=== PATIENT | female | born 1990 | race Caucasian/White ===

== ENCOUNTER → 2016-02-26 | Day surgery (SDC) | payer OTHER, BC ==
[~2016-02-26] VITALS: Ht 162.6 cm; Wt 63.5 kg
[~2016-02-26] MED LIST: BUPIVACAINE HCL 0.25% 30 ML VIAL As Ordered ONE; BUPIVACAINE HCL 0.25% 30 ML VIAL XX ONE; GLYCOPYRROLATE INJ 0.2 MG/ML 2 ML VIAL As Ordered ONE; HYDROcodone/APAP LIQUID 7.5-325MG 15ML UDC (LORTAB ELIXIR) PO PRN; HYDROmorphone HCL 2 MG/ML 1ML VIAL (J1170) As Ordered ONE; KETOROLAC 30 MG/ML VIAL (J1885) IV SCH; KETOROLAC 60 MG/2 ML VIAL (J1885) As Ordered ONE; LIDOCAINE 2% INJ 100 MG/5 ML SDV (FOR ANES.) As Ordered ONE; LR 1,000 ML IV SCH; MIDAZOLAM INJ 2 MG/2 ML VIAL (J2250) As Ordered ONE; NEOSTIGMINE 1MG/ML 5 ML SYRINGE (J2710) As Ordered ONE; NO HOME MEDS; ONDANSETRON 4MG/2ML VIAL (J2405) As Ordered ONE; ONDANSETRON 4MG/2ML VIAL (J2405) IV PRN; PERCOCET 5MG/325MG TAB PO PRN; PHENYLephrine HCL 500 MCG/5 ML (100MCG/ML) SYRINGE (J2370) As Ordered ONE; PROPOFOL 200 MG/20 ML VIAL As Ordered ONE; ROCURONIUM BROMIDE 50 MG/5 ML VIAL As Ordered ONE; dexameTHASONE 4 MG/ML 1ML VIAL (J1100) As Ordered ONE; ePHEDrine SULFATE 25 MG/5 ML(5MG/ML) SYRINGE As Ordered ONE; fentaNYL 100 MCG/2 ML INJECTION (J3010) IV PRN; fentaNYL 250 MCG/5 ML INJECTION (J3010) As Ordered ONE
[2016-02-26 09:27] LABS: MEAN CORPUSCULAR HEMOGLOBIN 31.3 pg (27.0-33.0); MEAN CORPUSCULAR HGB CONC 35.8 g/dl (32.0-36.5); MEAN CORPUSCULAR VOLUME 87.5 fl (80.0-96.0); RED CELL DISTRIBUTION WIDTH 12.8 % (11.5-14.5); WHITE BLOOD COUNT 4.3 K/mm3 (4.0-10.0)
[2016-02-26 09:48] LABS: CONTROL LINE HCG INT CTR LINE PRESENT
--- NOTE | 2016-02-26 11:53 | RO ---
DATE OF PROCEDURE: 02/26/2016 PREPROCEDURE DIAGNOSIS: Left ovarian cyst. POSTPROCEDURE DIAGNOSIS: Left endometrioma. PROCEDURE: Laparoscopic left ovarian cystectomy. SURGEON: Georgiana Shipley M.D. STENOTYPE MACHINE OPERATOR: Griffin Wells M.D. Medical student: Malick Abad Lonnie III. ANESTHESIA: General endotracheal anesthesia. ESTIMATED BLOOD LOSS: 5 mL. IV FLUID: 1300 mL of lactated ringer solution. URINE OUTPUT: 300 mL. SPECIMEN: Left endometrioma. OPERATIVE FINDINGS: Patient with approximately 6 cm left endometrioma, normal appearing uterus and bilateral ovaries otherwise. DESCRIPTION OF OPERATION: After informed consent was obtained and written consent was reviewed, the patient was brought to the operating room where general endotracheal anesthesia was obtained. She was then placed in lithotomy position and was prepped and draped in normal sterile fashion. A time-out in the operating room was then performed identifying the patient, procedure to be performed, as well as drug allergies. [place] speculum was then placed revealing the cervix. The inferior lip of the cervix was grasped with a single tooth tenaculum. A Hulka tenaculum was then advanced through the cervical os for means to manipulate the uterus. The single tooth tenaculum and speculum was then removed. A Eisenberg catheter was then placed and set to gravity. Gloves were changed and attention was turned to the patient's abdomen where 0.25% Marcaine was infused in the umbilical region. The area was incised and an 11 mm trocar sleeve was advanced through this incision. Intra-abdominal placement was confirmed and a pneumoperitoneum was then obtained with CO2 gas. Two accessory ports were placed. These were placed left and right of the umbilicus. These areas were fused with 0.25% Marcaine. Incision was made in each one of these areas and a 3 mm trocar and sleeve was advanced through each one of these incisions under direct visualization. Next, the abdomen was then surveyed with the above noted finding. Next, the left fallopian tube was then placed in traction revealing the left endometrioma. There was intraoperative rupture of endometrioma productive of fluid which was then suctioned and irrigated. Next, cyst wall was then dissected out from the ovary and this cyst wall was then transected using Monopolar cautery with the EndoShears. Hemostasis was achieved. The area was then suctioned and irrigated and noted to be hemostatic. Specimen was then brought out through the port sites and sent to pathology for evaluation. The pneumoperitoneum was then released, trocars were removed. The fascia of the umbilical port site was closed with #0 Vicryl. The skin in the umbilical port site was then closed with 4-0 Monocryl. All three port sites were dressed with Dermabond. Tenaculum and Eisenberg catheter were then removed. Tenaculum site noted to be hemostatic. The patient was then taken out of lithotomy position, was awakened from general anesthesia and taken to recovery in stable condition. Counts were correct.
[2016-02-26 13:35] VITALS: BP 95/53
== END | disposition home or self-care (01) ==
LOC: M SDC 08:48
PROVIDERS: ATTEND Obstetrics & Gynecology
DX: N80.1 Endometriosis of ovary (principal); G89.29 Other chronic pain
CPT/HCPCS: 36415; 58662; 84703; 85027; 86850; 86900; 86901; 88305; J1100; J1170; J1885; J2250; J2370; J2405; J2710; J3010

== ENCOUNTER → 2016-07-01 | Outpatient (CLI) | payer BC, OTHER ==
[~2016-07-01] MED LIST changes: -BUPIVACAINE HCL 0.25% 30 ML VIAL As Ordered ONE; -BUPIVACAINE HCL 0.25% 30 ML VIAL XX ONE; -GLYCOPYRROLATE INJ 0.2 MG/ML 2 ML VIAL As Ordered ONE; -HYDROcodone/APAP LIQUID 7.5-325MG 15ML UDC (LORTAB ELIXIR) PO PRN; -HYDROmorphone HCL 2 MG/ML 1ML VIAL (J1170) As Ordered ONE; -KETOROLAC 30 MG/ML VIAL (J1885) IV SCH; -KETOROLAC 60 MG/2 ML VIAL (J1885) As Ordered ONE; -LIDOCAINE 2% INJ 100 MG/5 ML SDV (FOR ANES.) As Ordered ONE; -LR 1,000 ML IV SCH; -MIDAZOLAM INJ 2 MG/2 ML VIAL (J2250) As Ordered ONE; -NEOSTIGMINE 1MG/ML 5 ML SYRINGE (J2710) As Ordered ONE; -ONDANSETRON 4MG/2ML VIAL (J2405) As Ordered ONE; -ONDANSETRON 4MG/2ML VIAL (J2405) IV PRN; -PERCOCET 5MG/325MG TAB PO PRN; -PHENYLephrine HCL 500 MCG/5 ML (100MCG/ML) SYRINGE (J2370) As Ordered ONE; -PROPOFOL 200 MG/20 ML VIAL As Ordered ONE; -ROCURONIUM BROMIDE 50 MG/5 ML VIAL As Ordered ONE; -dexameTHASONE 4 MG/ML 1ML VIAL (J1100) As Ordered ONE; -ePHEDrine SULFATE 25 MG/5 ML(5MG/ML) SYRINGE As Ordered ONE; -fentaNYL 100 MCG/2 ML INJECTION (J3010) IV PRN; -fentaNYL 250 MCG/5 ML INJECTION (J3010) As Ordered ONE
--- NOTE | 2016-07-01 16:14 | REP ---
Clinical: Right lower quadrant pain . Technique: Transabdominal pelvic ultrasound followed by transvaginal examination for better evaluation of the endometrium and adnexa with color Doppler evaluation of the ovaries. Findings: Bladder is unremarkable and measures 7.4 x 5.6 x 3.3 cm . Normal anteverted uterus measures 7.5 x 3.9 x 5.3 cm . The endometrial complex measures 8.7 mm thickness. No discrete uterine or endometrial abnormalities are appreciated. Bilateral ovaries are normal in appearance and vascularity without evidence for torsion. Right ovary measures 3.5 x 2.6 x 2.7 cm and includes 1.9 cm involuting cyst ; R I = 0.59 . Left ovary measures 3.6 x 2.7 x 4.1 cm and includes 2.3 cm dominant follicle ; R I = 0.48 . Trace pelvic free fluid . Impression: 1. Involuting right ovarian cyst and small amount of free fluid are physiologic, but possibly related to patient's symptoms. Signed by Delon Sharp MD 07/01/2016 04:05 P
== END ==
LOC: M RAD 15:41
PROVIDERS: ATTEND Physician Assistant Medical
DX: R10.9 Unspecified abdominal pain (principal); N83.291 Other ovarian cyst, right side

== ENCOUNTER → 2016-07-07 | Outpatient (REF) | payer OTHER | LOC: M LAB REF 10:03 | PROVIDERS: ATTEND Physician Assistant | DX: R30.0 Dysuria (principal) ==

== ENCOUNTER → 2017-04-05 | Outpatient (CLI) | payer OTHER ==
[2017-04-05 13:41] LABS: BASO % 0.1 % (0.0-1.0); EOS % 0.6 % (0.0-3.0); HEMATOCRIT 36.9 % (36.0-47.0); HEMOGLOBIN 13.2 g/dl (12.0-16.0); IMMATURE GRANULOCYTE % 0.1 % (0-3.0); LYMPH # 1.1 10^3/uL (1.5-6.5); LYMPH % 14.9 % (24.0-44.0); MEAN CORPUSCULAR HEMOGLOBIN 31.8 pg (27.0-33.0); MEAN CORPUSCULAR HGB CONC 35.8 g/dl (32.0-36.5); MEAN CORPUSCULAR VOLUME 88.9 fl (80.0-96.0); MONO # 0.5 10^3/uL (0.0-0.8); MONO % 7.4 % (0.0-5.0); NEUTROPHILS # 5.5 10^3/uL (1.8-7.7); NEUTROPHILS % 76.9 % (36.0-66.0); PLATELET COUNT, AUTOMATED 152 10^3/uL (150-450); RED BLOOD COUNT 4.15 10^6/uL (4.00-5.40); RED CELL DISTRIBUTION WIDTH 11.9 % (11.5-14.5); WHITE BLOOD COUNT 7.2 10^3/uL (4.0-10.0)
[2017-04-05 14:02] LABS: RUBELLA IgG QUALITATIVE IMMUNE (IMMUNE)
[2017-04-05 14:03] LABS: HBsAg Prenatal NEGATIVE (NEGATIVE)
[2017-04-05 14:31] LABS: HEPATITIS C VIRUS ABY INDEX 0.1 INDEX (<0.8)
[2017-04-05 14:31] LABS: HIV 1&2 SCREEN CENTAUR NEGATIVE (NEGATIVE)
[2017-04-05 15:06] LABS: CHLAMYDIA DNA AMPLIFICATION NEGATIVE (NEGATIVE); GC DNA AMPLIFICATION NEGATIVE (NEGATIVE)
== END ==
LOC: M SMT 09:56
DX: Z34.81 Encounter for supervision of other normal pregnancy, first trimester (principal); Z3A.09 9 weeks gestation of pregnancy

== ENCOUNTER → 2017-06-07 | Outpatient (CLI) | payer OTHER | LOC: M SMT 10:30 | DX: Z34.82 Encounter for supervision of other normal pregnancy, second trimester (principal) | CPT/HCPCS: 76811 ==

== ENCOUNTER → 2017-06-28 | Outpatient (CLI) | payer OTHER | LOC: M SMT 14:44 | DX: Z36.2 Encounter for other antenatal screening follow-up (principal); Z3A.21 21 weeks gestation of pregnancy | CPT/HCPCS: 76816 ==

== ENCOUNTER 2017-07-05 07:49 | Emergency (ER) | payer OTHER ==
[2017-07-05 09:10] LABS: HEMATOCRIT 30.2 % (36.0-47.0); HEMOGLOBIN 10.8 g/dl (12.0-15.5); MEAN CORPUSCULAR HGB CONC 35.8 g/dl (32.0-36.5); MEAN CORPUSCULAR VOLUME 92.4 fl (80.0-96.0); PLATELET COUNT, AUTOMATED 105 10^3/uL (150-450); RED BLOOD COUNT 3.27 10^6/uL (4.00-5.40); RED CELL DISTRIBUTION WIDTH 12.4 % (11.5-14.5); WHITE BLOOD COUNT 7.5 10^3/uL (4.0-10.0)
== END 2017-07-05 12:53 | disposition home or self-care (01) ==
LOC: M ED 07:49
DX: O9A.212 Injury, poisoning and certain other consequences of external causes complicating pregnancy, second trimester (principal); S80.11XA Contusion of right lower leg, initial encounter; V49.49XA Driver injured in collision with other motor vehicles in traffic accident, initial encounter; Y92.410 Unspecified street and highway as the place of occurrence of the external cause; Z3A.22 22 weeks gestation of pregnancy
CPT/HCPCS: 73590

== ENCOUNTER → 2017-08-11 | Outpatient (CLI) | payer OTHER ==
[2017-08-11 13:23] LABS: HEMATOCRIT 32.7 % (36.0-47.0); HEMOGLOBIN 11.4 g/dl (12.0-15.5); MEAN CORPUSCULAR HEMOGLOBIN 32.9 pg (27.0-33.0); MEAN CORPUSCULAR HGB CONC 34.9 g/dl (32.0-36.5); MEAN CORPUSCULAR VOLUME 94.2 fl (80.0-96.0); PLATELET COUNT, AUTOMATED 108 10^3/uL (150-450); RED BLOOD COUNT 3.47 10^6/uL (4.00-5.40); RED CELL DISTRIBUTION WIDTH 12.5 % (11.5-14.5); WHITE BLOOD COUNT 8.8 10^3/uL (4.0-10.0)
[2017-08-11 13:50] LABS: GLUCOSE CHALLENGE TEST 1 HOUR 100 MG/DL (LESS THAN 140)
== END ==
LOC: M SMT 08:44
DX: Z34.82 Encounter for supervision of other normal pregnancy, second trimester (principal)
CPT/HCPCS: 82950

== ENCOUNTER 2017-11-14 06:14 | Inpatient (IN) | payer OTHER ==
[2017-11-14] MEDS: miSOPROStol 50 MCG 1/2 TAB (S0191) PO ×3 (08:03→17:13)
[2017-11-14 08:11] LABS: HEMATOCRIT 33.4 % (36.0-47.0); MEAN CORPUSCULAR HEMOGLOBIN 32.9 pg (27.0-33.0); MEAN CORPUSCULAR HGB CONC 35.9 g/dl (32.0-36.5); MEAN CORPUSCULAR VOLUME 91.5 fl (80.0-96.0); PLATELET COUNT, AUTOMATED 127 10^3/uL (150-450); RED BLOOD COUNT 3.65 10^6/uL (4.00-5.40); RED CELL DISTRIBUTION WIDTH 13.2 % (11.5-14.5); WHITE BLOOD COUNT 9.3 10^3/uL (4.0-10.0)
[2017-11-14] MEDS: CALCIUM CARBONATE 500 MG CHEW U/D PO (12:45)
[2017-11-14] MEDS ORDERED: PROMETHAZINE INJ 25 MG/ML VIAL (J2550) IV (21:00)
[2017-11-14] MEDS: BUTORPHANOL 2 MG/ML INJ (J0595) IV (21:00)
[2017-11-14] MEDS ORDERED: LR 1,000 ML IV (21:09)
[2017-11-14] MEDS ORDERED: OXYTOCIN DRIP 30 UNITS in APPROPRIATE DILUENT 1 EA IV (21:15)
[2017-11-14] MEDS ORDERED: FENTANYL 2MCG/ML ROPIVACAINE 0.2% IN 0.9% NACL 200ML IVBAG As Ordered (23:06)
[2017-11-14] MEDS ORDERED: diphenhydrAMINE INJ 50MG/ML VIAL (J1200) IV (23:56)
[2017-11-14] MEDS ORDERED: FENTANYL/ROPIVACAINE/NACL BAG 200 ML EPIDURAL (23:56)
[2017-11-14] MEDS ORDERED: NALOXONE INJ 0.4 MG/1 ML VIAL (J2310) IV (23:56)
[2017-11-14] MEDS ORDERED: ONDANSETRON 4MG/2ML VIAL (J2405) IV (23:56)
[2017-11-14] MEDS ORDERED: LACTATED RINGER'S 1000 ML IV (23:56)
[2017-11-14] MEDS ORDERED: EPIDURAL COMMENT XX (23:56)
[2017-11-14] MEDS ORDERED: REFRIGERATOR IV KEYS XX (23:56)
[2017-11-14] MEDS ORDERED: ePHEDrine SULFATE 25 MG/5 ML(5MG/ML) SYRINGE IV (23:56)
[2017-11-14] MEDS ORDERED: EPIDURAL/PCA KEYS XX (23:56)
[2017-11-15] MEDS ORDERED: ePHEDrine SULFATE 25 MG/5 ML(5MG/ML) SYRINGE As Ordered (01:08)
[2017-11-15] MEDS ORDERED: BICITRA 30ML SOLN UDC As Ordered (06:35)
[2017-11-15] MEDS ORDERED: ceFAZolin 2 GM/D5W 50 ML IV BAG (J0690 PER 500MG) As Ordered (06:36)
[2017-11-15] MEDS: BICITRA 30ML SOLN UDC PO (06:45)
[2017-11-15] MEDS ORDERED: LIDOCAINE 2% W/EPIN INJ 20ML **PRES FREE As Ordered (07:12)
[2017-11-15] MEDS ORDERED: OXYTOCIN INJ 10 UNITS/ML VIAL (J2590) As Ordered (07:12)
[2017-11-15] MEDS ORDERED: ONDANSETRON 4MG/2ML VIAL (J2405) As Ordered (07:12)
[2017-11-15] MEDS ORDERED: MORPHINE PRES-FREE INJ 10 MG/10 ML VIAL (J2274) As Ordered (07:13)
[2017-11-15] MEDS ORDERED: KETOROLAC 60 MG/2 ML VIAL (J1885) As Ordered (07:29)
[2017-11-15] MEDS ORDERED: NALOXONE INJ 0.4 MG/1 ML VIAL (J2310) IV ×2 (07:30)
[2017-11-15] MEDS ORDERED: METOCLOPRAMIDE INJ 10MG/2ML VIAL (J2765) IV ×2 (07:30→08:45)
[2017-11-15] MEDS ORDERED: ONDANSETRON 4MG/2ML VIAL (J2405) IV ×3 (07:30→08:45)
[2017-11-15] MEDS ORDERED: NALBUPHINE HCL 10 MG/ML AMP (J2300) IV (07:30)
[2017-11-15] MEDS ORDERED: MEPERIDINE 50 MG/ML 1ML VIAL (J2175) As Ordered (07:31)
[2017-11-15 07:39] LABS: CORD GAS ABE A -3.6; CORD GAS ABE V -3.7; CORD GAS HCO3 A 25.2 MEQ/L; CORD GAS HCO3 V 21.6 MEQ/L; CORD GAS O2 SAT A 31.7 %; CORD GAS O2 SAT V 70.3 %; CORD GAS PCO2 A 60.9 mmHg; CORD GAS PCO2 V 40.3 mmHg; CORD GAS PH A 7.235 UNITS; CORD GAS PH V 7.348 UNITS; CORD GAS PO2 A 18.5 mmHg; CORD GAS PO2 V 31.5 mmHg; CORD GAS SBC A 19.9 MEQ/L; CORD GAS SBC V 20.8 MEQ/L; CORD GAS TCO2 A 27.1 MEQ/L; CORD GAS TCO2 V 22.9 MEQ/L
[2017-11-15] MEDS ORDERED: UNASYN 3 GM VIAL As Ordered (07:41)
[2017-11-15] MEDS: OXYTOCIN DRIP 30 UNITS in APPROPRIATE DILUENT 1 EA IV ×3 (08:00→16:26)
[2017-11-15] MEDS ORDERED: MOM 30ML SUSPENSION UDC PO (08:15)
[2017-11-15] MEDS ORDERED: RHOGAM 300 MCG (1500 IU) INJ (J2790) IM (08:15)
[2017-11-15] MEDS ORDERED: MEASLES,MUMPS,RUBELLA VACCINE INJ (MMR-II) (90707) SC (08:15)
[2017-11-15] MEDS: AMPICILLIN SOD/SULBACTAM SOD 3 GM in D5W MINI-BAG PLUS 100 ML IV ×3 (08:33→19:50)
[2017-11-15] MEDS ORDERED: PERCOCET 5MG/325MG TAB PO (08:45)
[2017-11-15] MEDS ORDERED: fentaNYL 100 MCG/2 ML INJECTION (J3010) IV (08:45)
[2017-11-15] MEDS ORDERED: MEPERIDINE INJ 25 MG/ML VIAL (J2175) IV (08:45)
[2017-11-15] MEDS ORDERED: OXYTOCIN 30 UNITS IN 0.9% NaCl 500ML IV BAG (J2590) As Ordered (09:03)
[2017-11-15] MEDS: LR 1,000 ML IV ×2 (10:59)
[2017-11-15] MEDS: KETOROLAC 30 MG/ML VIAL (J1885) IV ×2 (14:35→19:49)
[2017-11-15] MEDS: PERCOCET 5MG/325MG TAB PO (19:50)
[2017-11-16] MEDS: KETOROLAC 30 MG/ML VIAL (J1885) IV (02:16)
[2017-11-16] MEDS: AMPICILLIN SOD/SULBACTAM SOD 3 GM in D5W MINI-BAG PLUS 100 ML IV ×2 (02:17→08:11)
[2017-11-16] MEDS: PERCOCET 5MG/325MG TAB PO ×4 (06:49→19:46)
[2017-11-16 07:52] LABS: HEMATOCRIT 27.8 % (36.0-47.0); HEMOGLOBIN 9.4 g/dl (12.0-15.5); MEAN CORPUSCULAR HEMOGLOBIN 32.3 pg (27.0-33.0); MEAN CORPUSCULAR HGB CONC 33.8 g/dl (32.0-36.5); MEAN CORPUSCULAR VOLUME 95.5 fl (80.0-96.0); RED BLOOD COUNT 2.91 10^6/uL (4.00-5.40); RED CELL DISTRIBUTION WIDTH 13.5 % (11.5-14.5); WHITE BLOOD COUNT 10.7 10^3/uL (4.0-10.0)
[2017-11-16 07:55] LABS: IMMATURE PLATELET FRACTION % 7.7 % (0.0-9.6); PLATELET COUNT, AUTOMATED 83 10^3/uL (150-450)
[2017-11-16] MEDS: PRENATAL VITAMINS CHEWABLE TABLET PO (09:30)
[2017-11-16] MEDS: IBUPROFEN 800 MG TAB PO ×2 (10:33→18:08)
[2017-11-16] MEDS ORDERED: PILL CRUSHER/CUTTER 1 EACH XX (11:15)
[2017-11-16] MEDS: DOCUSATE SODIUM 100 MG CAP PO (22:35)
[2017-11-17] MEDS: PERCOCET 5MG/325MG TAB PO ×3 (00:55→11:03)
[2017-11-17] MEDS: IBUPROFEN 800 MG TAB PO ×2 (02:00→10:34)
[2017-11-17] MEDS: PRENATAL VITAMINS CHEWABLE TABLET PO (10:34)
== END 2017-11-17 11:33 | disposition home or self-care (01) | DRG 540 ==
LOC: M LDI 06:14 → M OBS 11-15 09:27
PROVIDERS: Advanced Practice Midwife
PROC: 10D00Z1 Extraction of Products of Conception, Low, Open Approach (ICD-10-PCS; principal; 2017-11-14 06:57)
PROC: 3E0DXGC Introduction of Other Therapeutic Substance into Mouth and Pharynx, External Approach (ICD-10-PCS; 2017-11-14 06:57)
DX: O48.0 Post-term pregnancy (principal); O61.0 Failed medical induction of labor; Z37.0 Single live birth; Z3A.41 41 weeks gestation of pregnancy; O62.0 Primary inadequate contractions; O76 Abnormality in fetal heart rate and rhythm complicating labor and delivery

== ENCOUNTER 2018-12-18 07:36 | Emergency (ER) | payer OTHER ==
[~2018-12-18] VITALS: Ht 162.6 cm; Wt 67.8 kg
[~2018-12-18 07:36] MED LIST changes: +COLA100C5 PO; +IBUP-1114 PO; +IBUP80TA PO; +OXYC1TAB23 PO; +PERCOCET PO; +PREN1TAB26 PO; +TUMS500C PO
[2018-12-18] MEDS ORDERED: ACETAMINOPHEN 500 MG TAB PO ONE ×2 (08:15→17:45)
[2018-12-18] MEDS ORDERED: NS 1,000 ML IV ONE ×2 (08:15→18:30)
--- NOTE | 2018-12-18 08:32 | REP ---
Portable chest, a 19 a.m., single AP view with the patient semi upright: There are no comparisons. The lung garza are clear. The cardiac size is normal. The bridger, mediastinum, and skeletal structures are unremarkable. Impression: Negative portable chest. Electronically Signed by Klever Salinas MD 12/18/2018 08:25 A
[2018-12-18 08:46] LABS: BASO % 0.1 % (0.0-1.0); EOS # 0.2 10^3/uL (0.0-0.5); EOS % 3.2 % (0.0-3.0); HEMATOCRIT 36.9 % (36.0-47.0); LYMPH # 1.3 10^3/uL (1.5-5.0); LYMPH % 17.5 % (24.0-44.0); MEAN CORPUSCULAR HEMOGLOBIN 31.9 pg (27.0-33.0); MEAN CORPUSCULAR HGB CONC 35.2 g/dl (32.0-36.5); MEAN CORPUSCULAR VOLUME 90.7 fl (80.0-96.0); MONO # 0.4 10^3/uL (0.0-0.8); MONO % 4.8 % (0.0-5.0); NEUTROPHILS # 5.4 10^3/uL (1.5-8.5); NEUTROPHILS % 74.1 % (36.0-66.0); PLATELET COUNT, AUTOMATED 131 10^3/uL (150-450); RED BLOOD COUNT 4.07 10^6/uL (4.00-5.40); WHITE BLOOD COUNT 7.3 10^3/uL (4.0-10.0)
[2018-12-18 08:55] LABS: INR 1.08; PROTHROMBIN TIME 13.7 SECONDS (11.8-14.0)
[2018-12-18 09:10] LABS: ERYTHROCYTE SEDIMENTATION RATE 15 mm/hr (0-20)
[2018-12-18 09:18] LABS: ALBUMIN 2.7 GM/DL (3.2-5.2); ALT/SGPT 17 U/L (12-78); BILIRUBIN,DIRECT < 0.1 MG/DL (0.0-0.2); BILIRUBIN,TOTAL 0.3 MG/DL (0.2-1.0); BLOOD UREA NITROGEN 7 MG/DL (7-18); CALCIUM LEVEL 8.3 MG/DL (8.5-10.1); CARBON DIOXIDE LEVEL 21 MEQ/L (21-32); CHLORIDE LEVEL 111 MEQ/L (98-107); CK-MB VALUE MASS 1.6 NG/ML (<3.6); CPK CREATINE PHOSPHOKINASE 105 U/L (26-192); GLOMERULAR FILTRATION RATE > 60.0 (>60); GLUCOSE, FASTING 86 MG/DL (70-100); MB/CK RELATIVE INDEX 1.52 (< OR =4); POTASSIUM SERUM 3.9 MEQ/L (3.5-5.1); SODIUM LEVEL 140 MEQ/L (136-145); TOTAL PROTEIN 5.9 GM/DL (6.4-8.2); TROPONIN I < 0.02 NG/ML (< 0.10)
[2018-12-18 10:14] LABS: NT-PRO BNP 38 PG/ML (<125)
--- NOTE | 2018-12-18 15:15 | REP ---
PERFUSION LUNG SCAN: HISTORY: Rule out pulmonary embolus. 19 weeks gestation . No pain and shortness of breath. Discomfort in the left chest. Comparison portable chest x-ray is from earlier this date. TECHNIQUE: 4.5 mCi technetium 99m MAA is given intravenously and a perfusion exam was carried out. A series of eight planar images are acquired. SCINTIGRAPHIC FINDINGS: There are multiple peripheral perfusion defects in the left lower lobe and left upper lobe. No perfusion defects are visible in the right lung. IMPRESSION: There are multiple peripheral wedge-shaped perfusion defects in the left upper lobe and left lower lobe in this patient with negative chest x-ray and no other history of lung disease. Findings are felt to be quite suspicious for pulmonary embolism. High probability scan. Electronically Signed by Jose Eduardo Santamaria MD 12/18/2018 03:33 P
[2018-12-18] MEDS ORDERED: ENOXAPARIN 100MG/1ML SYRINGE (J1650) SC ONE (17:00)
[2018-12-18] MEDS ORDERED: ISOVUE-370 76% 100ML VIAL (Q9967) As Ordered ONE (18:29)
[2018-12-18 19:06] LABS: NT-PRO BNP 29 PG/ML (<125); TROPONIN I < 0.02 NG/ML (< 0.10)
[2018-12-18 19:12] LABS: INR 1.02; PROTHROMBIN TIME 13.1 SECONDS (11.8-14.0)
[2018-12-18 19:13] LABS: PARTIAL THROMBOPLASTIN TIME 29.6 SECONDS (25.0-38.4)
--- NOTE | 2018-12-18 19:52 | REPVR ---
PROCEDURE INFORMATION: Exam: CT Angiography Chest With Contrast Exam date and time: 12/18/2018 6:43 PM Clinical history: 28 years old, female; Shortness of breath; Additional info: Per ob Dr. Marcos - R/O pe TECHNIQUE: Imaging protocol: Computed tomographic angiography of the chest with intravenous contrast. 3D rendering: MIP reconstructed images were created and reviewed. Radiation optimization: All CT scans at this facility use at least one of these dose optimization techniques: automated exposure control; mA and/or kV adjustment per patient size (includes targeted exams where dose is matched to clinical indication); or iterative reconstruction. Contrast material: ISOVUE 370; Contrast volume: 75 ml; Contrast route: IV; COMPARISON: CR Chest, 1 view 12/18/2018 8:17 AM FINDINGS: Pulmonary arteries: No pulmonary emboli. Aorta: No aortic aneurysm. No aortic dissection. Lungs: Mild bilateral bronchial wall thickening. There is occlusion of a segmental left lower lobe bronchus. No consolidation. Small atelectasis in the left lower lobe. Pleural space: No pneumothorax. No pleural effusion. Heart: No cardiomegaly. No pericardial effusion. Lymph nodes: Unremarkable. No enlarged lymph nodes. Bones/joints: Unremarkable. No acute fracture. Soft tissues: Unremarkable. IMPRESSION: 1. No pulmonary embolism. 2. Bronchitis. Occlusion of a segmental left lower lobe bronchus is probably due to impacted mucus or secretions. Electronically signed by: Flaco Nowak On 12/18/2018 19:52:12 PM
[2018-12-18 20:22] VITALS: BP 143/69
[2018-12-18] MEDS ORDERED: AMOX500C PO (20:22)
--- NOTE | 2018-12-19 05:35 | ECGEPIP ---
[facility] - ED Test Date: 2018-12-18 Pat Name: SALVADOR PEDRAZA Department: Room: - Gender: Female [employer]: blossom : 1990 Requested By: Lela Hager Order Number: [id number] Reading MD: Keagan Spicer Measurements Intervals Veteran Rate: 84 P: 72 NH: 142 QRS: 74 QRSD: 94 T: 39 QT: 359 QTc: 426 Interpretive Statements SINUS RHYTHM WITH SINUS ARRHYTHMIA BASELINE ARTIFACT AFFECTS INTERPRETATION NO PRIORS FOR COMPARISON Electronically Signed on 12-19-2018 5:35:22 EST by Keagan Spicer
[2018-12-25 10:10] LABS: DRVV SCREEN 47.3 SEC
[2018-12-25 10:46] LABS: PTT LUPUS TYPE ANTICOAG SCREEN 1.1 (0-1.2)
[2018-12-26 00:06] LABS: ANTI THROMBIN 3 ANTIGEN IMMUNO 82 % (72-124); ANTI THROMBIN 3 FUNCT ACTIVITY 118 % (75-135); CARDIOLIPIN IGA ANTIBODY <9 APL U/mL (0-11); CARDIOLIPIN IGG ANTIBODY <9 GPL U/mL (0-14); CARDIOLIPIN IGM ANTIBODY <9 MPL U/mL (0-12); PHOSPHOLIPIDS LEVEL 269 mg/dL (150-250); PROTEIN C FUNCTIONAL ACTIVITY 104 % (73-180); PROTEIN S FUNCTIONAL ACTIVITY 49 % (63-140)
== END 2018-12-18 20:39 | disposition home or self-care (01) ==
LOC: M ED 07:36
DX: O99.89 Other specified diseases and conditions complicating pregnancy, childbirth and the puerperium (principal); I26.99 Other pulmonary embolism without acute cor pulmonale; Z3A.19 19 weeks gestation of pregnancy
CPT/HCPCS: 36415; 71045; 71275; 78580; 80048; 80076; 81240; 82550; 82553; 83880; 84311; 84443; 84484; 85025; 85300; 85301; 85303; 85305; 85610; 85652; 85730; 86147; 87040; 93005; 93041; 94760; 96360; 99285; A9540; J1650; Q9967

== ENCOUNTER → 2019-12-16 | Outpatient (REF) | payer OTHER ==
[~2019-12-16] MED LIST changes: +AMOX500C PO
== END ==
LOC: M LAB REF 16:04
PROVIDERS: ATTEND Physician Assistant
DX: N39.0 Urinary tract infection, site not specified (principal)

== ENCOUNTER → 2022-06-21 | Outpatient (REF) | payer OTHER ==
[2022-06-21 17:16] LABS: PERCENT SATURATION 5.9 % (13.2-45.0)
[2022-06-21 17:18] LABS: FERRITIN 69.1 NG/ML (7.3-270.7); IMMUNOGLOBULIN A 107.2 MG/DL (40-350)
== END ==
LOC: M LAB REF 16:20
PROVIDERS: ATTEND Internal Medicine
DX: R53.83 Other fatigue (principal); D69.6 Thrombocytopenia, unspecified; R10.13 Epigastric pain

== ENCOUNTER → 2022-07-18 | Outpatient (CLI) | payer OTHER | LOC: M RAD 08:01 | PROVIDERS: ATTEND Internal Medicine | DX: R10.13 Epigastric pain (principal); Z00.00 Encounter for general adult medical examination without abnormal findings; Z13.89 Encounter for screening for other disorder ==

== ENCOUNTER → 2023-04-04 | Outpatient (REF) | payer OTHER ==
[2023-04-04 18:51] LABS: PERCENT SATURATION 14.4 % (13.2-45.0)
[2023-04-04 18:54] LABS: FERRITIN 13.3 NG/ML (7.3-270.7)
== END ==
LOC: M LAB REF 16:29
PROVIDERS: ATTEND Internal Medicine
DX: D50.9 Iron deficiency anemia, unspecified (principal)

== ENCOUNTER → 2024-04-04 | Outpatient (REF) | payer OTHER ==
[2024-04-04 14:26] LABS: PERCENT SATURATION 31.7 % (13.2-45.0)
== END ==
LOC: M LAB REF 12:29
PROVIDERS: ATTEND Internal Medicine
DX: E61.1 Iron deficiency (principal); D69.6 Thrombocytopenia, unspecified

== ENCOUNTER → 2024-09-04 | Outpatient (CLI) | payer OTHER ==
[2024-09-04 13:03] LABS: PLATELET COUNT, AUTOMATED 139 10^3/uL (150-450)
[2024-09-04 14:11] LABS: HIV 1&2 SCREEN NEGATIVE (NEGATIVE)
[2024-09-04 14:20] LABS: HEPATITIS C VIRUS ABY INDEX < 0.02 INDEX (<0.8)
[2024-09-04 15:16] LABS: Trichomonas vaginalis (AMP) NOT DETECTED (NEGATIVE)
[2024-09-04 15:39] LABS: GC DNA AMPLIFICATION NEGATIVE (NEGATIVE)
== END ==
LOC: M PLALAB 09:44
PROVIDERS: ATTEND Obstetrics & Gynecology
DX: Z34.81 Encounter for supervision of other normal pregnancy, first trimester (principal)

== ENCOUNTER → 2024-11-08 | Outpatient (CLI) | payer OTHER | LOC: M RAD 13:18 | PROVIDERS: ATTEND Obstetrics & Gynecology | DX: Z34.82 Encounter for supervision of other normal pregnancy, second trimester (principal); Z3A.20 20 weeks gestation of pregnancy ==

== ENCOUNTER → 2025-01-03 | Outpatient (CLI) | payer OTHER ==
[2025-01-03 17:47] LABS: PLATELET COUNT, AUTOMATED 105 10^3/uL (150-450)
[2025-01-03 17:50] LABS: GLUCOSE CHALLENGE TEST 1 HOUR 121 MG/DL (LESS THAN 140)
[2025-01-03 18:25] LABS: HIV 1&2 SCREEN NEGATIVE (NEGATIVE)
[2025-01-03 18:33] LABS: HEPATITIS C VIRUS ABY INDEX < 0.02 INDEX (<0.8)
[2025-01-03 19:28] LABS: Trichomonas vaginalis (AMP) NOT DETECTED (NEGATIVE)
[2025-01-03 19:51] LABS: GC DNA AMPLIFICATION NEGATIVE (NEGATIVE)
== END ==
LOC: M PLALAB 14:00
PROVIDERS: ATTEND Obstetrics & Gynecology
DX: O34.219 Maternal care for unspecified type scar from previous cesarean delivery (principal); Z3A.00 Weeks of gestation of pregnancy not specified

== ENCOUNTER 2025-01-15 13:05 | Outpatient (CLI) | payer OTHER ==
[~2025-01-15] VITALS: Ht 162.6 cm; Wt 86.3 kg
[~2025-01-15 13:05] MED LIST changes: +ALBUTEROL SULFATE 2.5 MG/0.5 ML INH CONCENTRATE NEB SOLN INH PRN; +EPINEPHrine INJ 1 MG/ML 1ML AMP IM PRN; +diphenhydrAMINE 50 MG/ML VIAL IV PRN
[2025-01-15 13:30] VITALS: BP 123/63; O2SAT 97
[2025-01-15] MEDS: IRON SUCROSE 300 MG in NS 250 ML IV ONE (13:46)
[2025-01-15] MEDS: ACETAMINOPHEN 650MG PO PRIOR TO INFUSION PO ONE (13:46)
[2025-01-15] MEDS: diphenhydrAMINE 25MG PO PRIOR TO INFUSION PO ONE (13:46)
[2025-01-15 15:50] VITALS: BP 116/65; O2SAT 98
== END 2025-01-15 15:55 | disposition home or self-care (01) ==
LOC: M INFU 13:05
PROVIDERS: ATTEND Nurse Practitioner Family
DX: O99.019 Anemia complicating pregnancy, unspecified trimester (principal); D64.9 Anemia, unspecified; Z3A.00 Weeks of gestation of pregnancy not specified
CPT/HCPCS: 96365; 96366; J1756

== ENCOUNTER → 2025-02-04 | Outpatient (CLI) | payer OTHER ==
[~2025-02-04] MED LIST changes: -ALBUTEROL SULFATE 2.5 MG/0.5 ML INH CONCENTRATE NEB SOLN INH PRN; -EPINEPHrine INJ 1 MG/ML 1ML AMP IM PRN; -diphenhydrAMINE 50 MG/ML VIAL IV PRN
[2025-02-04 13:40] LABS: PLATELET COUNT, AUTOMATED 103 10^3/uL (150-450)
== END ==
LOC: M PLALAB 10:30
PROVIDERS: ATTEND Obstetrics & Gynecology
DX: Z34.93 Encounter for supervision of normal pregnancy, unspecified, third trimester (principal)